=== PATIENT | female | born 1995 | race Caucasian/White ===

== ENCOUNTER 2016-02-23 22:48 | Emergency (ER) | payer OTHER ==
[2016-02-24] MEDS ORDERED: AZITHROMYCIN 250 MG TAB As Ordered ONE (02:28)
--- NOTE | 2016-02-24 02:57 | EDDOCDS ---
Nurse's Notes [facility] Name: Jennifer Clarke Age: 20 yrs Sex: Female : 1995 Arrival Date: 02/23/2016 Time: 22:48 Bed I7 / 29 Private MD: AMBROCIO Esquivel Diagnosis: Acute sinusitis;Cough Presentation: 02/22 22:59 Presenting complaint: Patient states: painful cough, sore throat, nasal congestion pml since this AM. states she is 25 weeks . Adult Sepsis Screening: The patient does not have new or worsening altered mentation. Patient's respiratory rate is less than 22. Systolic blood pressure is greater than 100. Patient has a qSOFA score of 0- Negative Sepsis Screen. Suicide/Homicide risk assessment- the patient denies having any suicidal and/or homicidal ideations and does not present with any other emotional, behavioral or mental health complaints. Status: The patient is a dependent. Transition of care: patient was not received from another setting of care. 22:59 Acuity: ATILIO Level 5 pml 22:59 Method Of Arrival: Walkin/Carried/Asstd pml Triage Assessment: 23:00 General: Appears in no apparent distress, Behavior is appropriate for age, cooperative. pml Pain: Location: chest Pain currently is 4 out of 10 on a pain scale. HIV screening NA for this visit Offered previously. Respiratory: Onset: The symptoms/episode began/occurred this morning. 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 Vitamin Oral tab 1 tab once daily - PMHx: none; - PSHx: Appendectomy; - Social history: Smoking status: Patient states was never smoker of tobacco. No barriers to communication noted, The patient speaks fluent Occitan, Speaks appropriately for age. - Family history: Not pertinent. - : The pt / caregiver states he / she is not on anticoagulants. Home medication list is obtained from the patient. - Exposure Risk Screening:: None identified. Screenin/17 01:26 Screening information is obtained from the patient. Fall risk: No risks identified. jmb Assistance ADL's: requires no assistance with activities of daily living. Abuse/DV Screen: The patient / caregiver reports he/she is: not in a situation that causes fear, pain or injury. Nutritional screening: No deficits noted. home support is adequate. 02:54 Advance Directives: Currently, there is no health care proxy. rw1 Assessment: 01:26 General: Appears in no apparent distress, Behavior is appropriate for age, cooperative. jmb Neurological: Level of Consciousness is awake, alert, obeys commands, Oriented to person, place, time, Speech is normal, Facial symmetry appears normal, Facial symmetry: tongue is midline. Cardiovascular: Capillary refill < 3 seconds Heart tones present Pulses are all present. Rhythm is regular. Respiratory: Airway is patent Respiratory effort is even, Respiratory pattern is regular, Breath sounds are diminished bilaterally. GI: Abdomen is non- distended Bowel sounds present X 4 quads. Abd is soft X 4 quads. Derm: Skin is pink, warm & dry. Musculoskeletal: Range of motion intact in all extremities. 02:54 Reassessment: Patient appears in no apparent distress at this time. Patient states rw1 feeling better. Vital Signs: 02/22 22:50 BP 109 / 61; Pulse 118; Resp 18 S; Temp 98.5(O); Pulse Ox 96% on R/A; Weight 62.14 kg gr2 (R); Height 5 ft. 3 in. (160.02 cm) (R); Pain 4/10; 02/23 02:15 BP 111 / 59; Pulse 101; Resp 20; Temp 99.6(TE); Pulse Ox 97% on R/A; Pain 4/10; kb5 02:54 BP 104 / 61; Pulse 99; Resp 18; Temp 97.5(O); Pulse Ox 97% on R/A; rw1 02/22 22:50 Body Mass Index 24.27 (62.14 kg, 160.02 cm) gr2 Vitals: 02/22 22:50 Log In Time: February 23, 2016 at 22:50. gr2 02/23 01:46 Strep Screen is obtained and tested: Negative, a GATSNEG culture is ordered in [facility] and sent. 02:22 Heart Tones: 158BPM. cp1 ED Course: 02/22 22:49 Patient visited by Dariusz Hatch. gr2 22:49 Patient moved to Waiting gr2 22:50 [place] [facility] [place] Phys[place]. gr2 22:52 Patient visited by Dariusz Hatch. gr2 22:52 Patient moved to Pre E gr2 22:59 Triage Initiated pml 23:01 Patient visited by Hortensia Guerra RN. pml 23:56 Patient visited by Elke Foley LPN. cp1 02/23 01:21 Patient moved to I jmb 01:26 Patient visited by Pavel Mcfarlane PCA. kb5 01:26 The patient / caregiver is instructed regarding the plan of care and ED course. jmb 01:27 Patient visited by Kushal Tenorio RN. jmb 01:35 -Influenza A&B Rapid Antigen - Nose Sent. jmb 01:46 GATS (NEGATIVE STREP SCREEN) Sent. jmb 02:05 Patient visited by Pavel Mcfarlane PCA. kb5 02:09 [facility] ck7 02:09 Juan Hui DO is Attending Physician. ck7 02:09 Patient visited by Sherif Dailey RPA-C. ck7 02:15 Patient visited by Pavel Mcfarlane PCA. kb5 02:22 Patient visited by Elke Foley LPN. cp1 02:46 Alvin [facility] [place] Referral Physician. ck7 02:46 FÁTIMA Coronel is Referral Physician. ck7 02:54 No IV's were initiated during this patient's visit. No procedures done that require rw1 assistance. Administered Medications: 02:30 Drug: azithromycin 500 mg [azithromycin 250 mg tablet (2 tabs)] Route: PO; eloisa Order Results: Lab Order: -Influenza A&B Rapid Antigen - Nose; SPEC'M 02/24/16 01:34 Test: INFLUENZA A RAPID SCR by ICA; Value: INFLUENZA A RESULTS NEGATIVE; Status: F Test: INFLUENZA A RAPID SCR by ICA; Value: Comments:; Status: F Test: INFLUENZA B RAPID SCR by ICA; Value: INFLUENZA B RESULTS NEGATIVE; Status: F Test Note: ; The Influenza test is a direct rapid immunoassay for the qualitative detection of Influenza viral antigen. Cell culture (Viral Culture) testing should be considered to confirm NEGATIVE results and to assist in detecting other viruses that can provide similar clinical symptoms. Please contact the lab within 24 hours ([phone]) if confirmatory testing is desired. Outcome: 02:46 Discharge ordered by Provider. ck7 02:54 Discharge Assessment: Patient awake, alert and oriented x 3. No cognitive and/or rw1 functional deficits noted. Patient verbalized understanding of disposition instructions. patient administered narcotics - no. The following High Risk Discharge criteria are identified: None. Discharged to home ambulatory, with significant other. Condition: stable. Discharge instructions given to patient, Instructed on discharge instructions, follow up and referral plans. medication usage, Demonstrated understanding of instructions, medications, Pt was receptive of discharge instructions/ teaching. Prescriptions given X 1. No special radiology studies were completed. Property sent home with patient. 02:56 Patient left the ED. rw1 Signatures: Marco Nuñez LPN MARKETING INSTRUCTOR rw1 Pavel Mcfarlane, JAQUI CELL BIOLOGIST kb5 Elke Foley LPN LPN cp1 Hortensia Guerra,CRISTAL RN pml Sherif Dailey, RPA-C RPA-Cck7 Dariusz Hatch gr2 Kushal Tenorio,RN RN jmb Corrections: (The following items were deleted from the chart) 02/22 23:00 22:59 Presenting complaint: Patient states: painful cough, sore throat, nasal pml congestion since this AM. pml 23:00 23:00 PSHx: none; pml pml MTDD
--- NOTE | 2016-02-24 02:57 | EDDOCDS ---
Physician Documentation [facility] Name: Jennifer Clarke Age: 20 yrs Sex: Female : 1995 Arrival Date: 02/23/2016 Time: 22:48 Bed I7 / 29 Private MD: Alvin [facility] [place] Disposition: 02/24/16 02:46 Discharged to Home/Self Care. Impression: Acute sinusitis, Cough. - Condition is Stable. - Discharge Instructions: Sinusitis, Adult, Cough, Adult. - Prescriptions for Zithromax 250 mg Oral Tablet - take 1 tablet by ORAL route once daily start tomorrow; 4 tablet. - Medication Reconciliation, Work Release Form - 1 day, Local Pharmacy Hours form. - Follow up: [facility] [place] Alvin; When: 2 - 3 days; Reason: Recheck today's complaints, Continuance of care. Follow up: FÁTIMA Coronel; When: 1 - 2 days; Reason: Recheck today's complaints, Continuance of care. - Problem is new. - Symptoms have improved. - Notes: USE MEDICATION INSTRUTCED, FOLLOW UP WITH ANJALI GONZALEZ OB, RETURN TO THE ER IF THE SYMPTOMS WORSEN OR BECOME CONCERNING Historical: - Allergies: no known allergies; - Home Meds: 1. Vitamin Oral tab 1 tab once daily - PMHx: none; - PSHx: Appendectomy; - Social history: Smoking status: Patient states was never smoker of tobacco. No barriers to communication noted, The patient speaks fluent Eritrean, Speaks appropriately for age. - Family history: Not pertinent. - : The pt / caregiver states he / she is not on anticoagulants. Home medication list is obtained from the patient. - Exposure Risk Screening:: None identified. 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 3 in. (160.02 cm) (R); Pain 05/17; 02/23 02:15 BP 111 / 59; Pulse 101; Resp 20; Temp 99.6(TE); Pulse Ox 97% on R/A; Pain 4/10; kb5 02:54 BP 104 / 61; Pulse 99; Resp 18; Temp 97.5(O); Pulse Ox 97% on R/A; rw1 02/22 22:50 Body Mass Index 24.27 (62.14 kg, 160.02 cm) gr2 MDM: 01:29 Strep Screen, Nursing ordered. jmb 01:29 Obtain sample by nasopharyngeal swab ordered. jmb 01:30 -Influenza A&B Rapid Antigen - Nose Ordered. EDMS 01:46 GATS (NEGATIVE STREP SCREEN) Ordered. EDMS 02:10 Recheck Vital Signs, perform reassessment and enter into [employer] ordered. ck7 02:10 -Influenza A&B Rapid Antigen - Nose Reviewed. ck7 02:12 Financial registration complete. hs2 02:19 Heart Tones ordered. ck7 02:25 azithromycin 500 mg PO once ordered. ck7 Administered Medications: 02:30 Drug: azithromycin 500 mg [azithromycin 250 mg tablet (2 tabs)] Route: PO; linette Signatures: Dispatcher [employer] EDKY Marco Nuñez,YEAST CULTURE OPERATOR YEAST CULTURE OPERATOR rw1 Hortensia Guerra,RN RN Sherif Guzmán, RPA-C RPA-Cck7 Kushal TenorioRN RN Delicia Dodson, Reg Reg hs2 The chart was reviewed and I authenticate all verbal orders and agree with the evaluation and treatment provided.Corrections: (The following items were deleted from the chart) 02/22 23:00 23:00 PSHx: none; pml pml MTDD
--- NOTE | 2016-02-26 03:58 | EDDOCDS ---
Nurse's Notes [facility] Name: Jennifer Clarke Age: 20 yrs Sex: Female : 1995 Arrival Date: 02/23/2016 Time: 22:48 Bed I7 / 29 Private MD: AMBROCIO Esquivel Diagnosis: Acute sinusitis;Cough Presentation: 02/22 22:59 Presenting complaint: Patient states: painful cough, sore throat, nasal congestion pml since this AM. states she is 25 weeks . Adult Sepsis Screening: The patient does not have new or worsening altered mentation. Patient's respiratory rate is less than 22. Systolic blood pressure is greater than 100. Patient has a qSOFA score of 0- Negative Sepsis Screen. Suicide/Homicide risk assessment- the patient denies having any suicidal and/or homicidal ideations and does not present with any other emotional, behavioral or mental health complaints. Status: The patient is a dependent. Transition of care: patient was not received from another setting of care. 22:59 Acuity: ATILIO Level 5 pml 22:59 Method Of Arrival: Walkin/Carried/Asstd pml Triage Assessment: 23:00 General: Appears in no apparent distress, Behavior is appropriate for age, cooperative. pml Pain: Location: chest Pain currently is 4 out of 10 on a pain scale. HIV screening NA for this visit Offered previously. Respiratory: Onset: The symptoms/episode began/occurred this morning. 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 Vitamin Oral tab 1 tab once daily - PMHx: none; - PSHx: Appendectomy; - Social history: Smoking status: Patient states was never smoker of tobacco. No barriers to communication noted, The patient speaks fluent Latvian, Speaks appropriately for age. - Family history: Not pertinent. - : The pt / caregiver states he / she is not on anticoagulants. Home medication list is obtained from the patient. - Exposure Risk Screening:: None identified. Screenin/17 01:26 Screening information is obtained from the patient. Fall risk: No risks identified. jmb Assistance ADL's: requires no assistance with activities of daily living. Abuse/DV Screen: The patient / caregiver reports he/she is: not in a situation that causes fear, pain or injury. Nutritional screening: No deficits noted. home support is adequate. 02:54 Advance Directives: Currently, there is no health care proxy. rw1 Assessment: 01:26 General: Appears in no apparent distress, Behavior is appropriate for age, cooperative. jmb Neurological: Level of Consciousness is awake, alert, obeys commands, Oriented to person, place, time, Speech is normal, Facial symmetry appears normal, Facial symmetry: tongue is midline. Cardiovascular: Capillary refill < 3 seconds Heart tones present Pulses are all present. Rhythm is regular. Respiratory: Airway is patent Respiratory effort is even, Respiratory pattern is regular, Breath sounds are diminished bilaterally. GI: Abdomen is non- distended Bowel sounds present X 4 quads. Abd is soft X 4 quads. Derm: Skin is pink, warm & dry. Musculoskeletal: Range of motion intact in all extremities. 02:54 Reassessment: Patient appears in no apparent distress at this time. Patient states rw1 feeling better. Vital Signs: 02/22 22:50 BP 109 / 61; Pulse 118; Resp 18 S; Temp 98.5(O); Pulse Ox 96% on R/A; Weight 62.14 kg gr2 (R); Height 5 ft. 3 in. (160.02 cm) (R); Pain 4/10; 02/23 02:15 BP 111 / 59; Pulse 101; Resp 20; Temp 99.6(TE); Pulse Ox 97% on R/A; Pain 4/10; kb5 02:54 BP 104 / 61; Pulse 99; Resp 18; Temp 97.5(O); Pulse Ox 97% on R/A; rw1 02/22 22:50 Body Mass Index 24.27 (62.14 kg, 160.02 cm) gr2 Vitals: 02/22 22:50 Log In Time: February 23, 2016 at 22:50. gr2 02/23 01:46 Strep Screen is obtained and tested: Negative, a GATSNEG culture is ordered in [facility] and sent. 02:22 Heart Tones: 158BPM. cp1 ED Course: 02/22 22:49 Patient visited by Dariusz Hatch. gr2 22:49 Patient moved to Waiting gr2 22:50 Alvin [facility] [place] is Private Physician. gr2 22:52 Patient visited by Dariusz Hatch. gr2 22:52 Patient moved to Pre E gr2 22:59 Triage Initiated pml 23:01 Patient visited by Hortensia Guerra,CRISTAL. pml 23:56 Patient visited by Elke Foley LPN. cp1 02/23 01:21 Patient moved to I jmb 01:26 Patient visited by Pavel Mcfarlane PCA. kb5 01:26 The patient / caregiver is instructed regarding the plan of care and ED course. jmb 01:27 Patient visited by Kushal Tenorio RN. jmb 01:35 -Influenza A&B Rapid Antigen - Nose Sent. jmb 01:46 GATS (NEGATIVE STREP SCREEN) Sent. jmb 02:05 Patient visited by Pavel Mcfarlane PCA. kb5 02:09 Sherif Dailey RPA-C is PHCP. ck7 02:09 Juan Hui DO is Attending Physician. ck7 02:09 Patient visited by Sherif Dailey RPA-C. ck7 02:15 Patient visited by Pavel Mcfarlane PCA. kb5 02:22 Patient visited by Elke Foley LPN. cp1 02:46 Alvin [facility] [place] is Referral Physician. ck7 02:46 FÁTIMA Coronel is Referral Physician. ck7 02:54 No IV's were initiated during this patient's visit. No procedures done that require rw1 assistance. 03:36 [facility] Payment Agreement was scanned into [employer] and attached to record. hs2 09:11 T-Sheet-- Draft Copy was scanned into [employer] and attached to record. gb Administered Medications: 02:30 Drug: azithromycin 500 mg [azithromycin 250 mg tablet (2 tabs)] Route: PO; linette Order Results: Lab Order: -Influenza A&B Rapid Antigen - Nose; SPEC'M 02/24/16 01:34 Test: INFLUENZA A RAPID SCR by ICA; Value: INFLUENZA A RESULTS NEGATIVE; Status: F Test: INFLUENZA A RAPID SCR by ICA; Value: Comments:; Status: F Test: INFLUENZA B RAPID SCR by ICA; Value: INFLUENZA B RESULTS NEGATIVE; Status: F Test Note: ; The Influenza test is a direct rapid immunoassay for the qualitative detection of Influenza viral antigen. Cell culture (Viral Culture) testing should be considered to confirm NEGATIVE results and to assist in detecting other viruses that can provide similar clinical symptoms. Please contact the lab within 24 hours ([phone]) if confirmatory testing is desired. Lab Order: GATS (NEGATIVE STREP SCREEN); SPEC'M 02/24/16 01:33 Test: GATS CULTURE (NEG STREP SCR); Value: GATS RESULT NEGATIVE FOR STREP PYOGENES (GROUP A); Status: F Outcome: 02:46 Discharge ordered by Provider. ck7 02:54 Discharge Assessment: Patient awake, alert and oriented x 3. No cognitive and/or rw1 functional deficits noted. Patient verbalized understanding of disposition instructions. patient administered narcotics - no. The following High Risk Discharge criteria are identified: None. Discharged to home ambulatory, with significant other. Condition: stable. Discharge instructions given to patient, Instructed on discharge instructions, follow up and referral plans. medication usage, Demonstrated understanding of instructions, medications, Pt was receptive of discharge instructions/ teaching. Prescriptions given X 1. No special radiology studies were completed. Property sent home with patient. 02:56 Patient left the ED. rw1 Signatures: Omaira Hernandez, Reg Reg gb Marco Nuñez,SUPERVISOR MIRROR FABRICATION SUPERVISOR MIRROR FABRICATION rw1 Pavel Mcfarlane, SILK SCREENER SILK SCREENER kb5 Elke Foley,SUPERVISOR MIRROR FABRICATION SUPERVISOR MIRROR FABRICATION cp1 Hortensia Guerra RN RN pml Kwaczala, Christopher, RPA-C RPA-Cck7 Dariusz Hatch gr2 Kushal Tenorio RN RN jmb Stanton, Hillary, Reg Reg hs2 Corrections: (The following items were deleted from the chart) 02/22 23:00 22:59 Presenting complaint: Patient states: painful cough, sore throat, nasal pml congestion since this AM. pml 23:00 23:00 PSHx: none; pml pml Chart Complete MTDD
--- NOTE | 2016-02-26 03:58 | EDDOCDS ---
Physician Documentation [facility] Name: Jennifer Clarke Age: 20 yrs Sex: Female : 1995 Arrival Date: 02/23/2016 Time: 22:48 Bed I7 / 29 Private MD: Alvin [facility] Disposition: 02/24/16 02:46 Discharged to Home/Self Care. Impression: Acute sinusitis, Cough. - Condition is Stable. - Discharge Instructions: Sinusitis, Adult, Cough, Adult. - Prescriptions for Zithromax 250 mg Oral Tablet - take 1 tablet by ORAL route once daily start tomorrow; 4 tablet. - Medication Reconciliation, Work Release Form - 1 day, Local Pharmacy Hours form. - Follow up: [facility] Alvin; When: 2 - 3 days; Reason: Recheck today's complaints, Continuance of care. Follow up: FÁTIMA Coronel; When: 1 - 2 days; Reason: Recheck today's complaints, Continuance of care. - Problem is new. - Symptoms have improved. - Notes: USE MEDICATION INSTRUTCED, FOLLOW UP WITH ANJALI GONZALEZ OB, RETURN TO THE ER IF THE SYMPTOMS WORSEN OR BECOME CONCERNING Historical: - Allergies: no known allergies; - Home Meds: 1. Vitamin Oral tab 1 tab once daily - PMHx: none; - PSHx: Appendectomy; - Social history: Smoking status: Patient states was never smoker of tobacco. No barriers to communication noted, The patient speaks fluent Japanese, Speaks appropriately for age. - Family history: Not pertinent. - : The pt / caregiver states he / she is not on anticoagulants. Home medication list is obtained from the patient. - Exposure Risk Screening:: None identified. 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 3 in. (160.02 cm) (R); Pain 05/17; 02/23 02:15 BP 111 / 59; Pulse 101; Resp 20; Temp 99.6(TE); Pulse Ox 97% on R/A; Pain 4/10; kb5 02:54 BP 104 / 61; Pulse 99; Resp 18; Temp 97.5(O); Pulse Ox 97% on R/A; rw1 02/22 22:50 Body Mass Index 24.27 (62.14 kg, 160.02 cm) gr2 MDM: 01:29 Strep Screen, Nursing ordered. jmb 01:29 Obtain sample by nasopharyngeal swab ordered. jmb 01:30 -Influenza A&B Rapid Antigen - Nose Ordered. EDMS 01:46 GATS (NEGATIVE STREP SCREEN) Ordered. EDMS 02:10 Recheck Vital Signs, perform reassessment and enter into [employer] ordered. ck7 02:10 -Influenza A&B Rapid Antigen - Nose Reviewed. ck7 02:12 Financial registration complete. hs2 02:19 Heart Tones ordered. ck7 02:25 azithromycin 500 mg PO once ordered. ck7 03:36 [facility] Payment Agreement was scanned into [employer] and attached to record. hs2 09:11 T-Sheet-- Draft Copy was scanned into [employer] and attached to record. gb Administered Medications: 02:30 Drug: azithromycin 500 mg [azithromycin 250 mg tablet (2 tabs)] Route: PO; linette Signatures: Dispatcher [employer] EDDE Omaira Hernandez, Reg Reg gb Marco Nuñez,APPLICATIONS ANALYST APPLICATIONS ANALYST rw1 Hortensia Guerra,RN Sherif Faustin, RPA-C RPA-Cck7 Kushal Tenorio RN RN jmb Stanton, Hillary, Reg Reg hs2 The chart was reviewed and I authenticate all verbal orders and agree with the evaluation and treatment provided.Corrections: (The following items were deleted from the chart) 02/22 23:00 23:00 PSHx: none; pml pml Attachments: 02/23 03:36 [facility] Payment Agreement hs2 09:11 T-Sheet-- Draft Copy gb Chart Complete MTDD
--- NOTE | 2016-02-26 03:58 | EDDOCDS ---
Physician Documentation [facility] Name: Jennifer Clarke Age: 20 yrs Sex: Female : 1995 Arrival Date: 02/23/2016 Time: 22:48 Bed I7 / 29 Private MD: Alvin [facility] [place] Disposition: 02/24/16 02:46 Discharged to Home/Self Care. Impression: Acute sinusitis, Cough. - Condition is Stable. - Discharge Instructions: Sinusitis, Adult, Cough, Adult. - Prescriptions for Zithromax 250 mg Oral Tablet - take 1 tablet by ORAL route once daily start tomorrow; 4 tablet. - Medication Reconciliation, Work Release Form - 1 day, Local Pharmacy Hours form. - Follow up: [facility] [place] Alvin; When: 2 - 3 days; Reason: Recheck today's complaints, Continuance of care. Follow up: FÁTIMA Coronel; When: 1 - 2 days; Reason: Recheck today's complaints, Continuance of care. - Problem is new. - Symptoms have improved. - Notes: USE MEDICATION INSTRUTCED, FOLLOW UP WITH ANJALI GONZALEZ OB, RETURN TO THE ER IF THE SYMPTOMS WORSEN OR BECOME CONCERNING Historical: - Allergies: no known allergies; - Home Meds: 1. Vitamin Oral tab 1 tab once daily - PMHx: none; - PSHx: Appendectomy; - Social history: Smoking status: Patient states was never smoker of tobacco. No barriers to communication noted, The patient speaks fluent Palauan, Speaks appropriately for age. - Family history: Not pertinent. - : The pt / caregiver states he / she is not on anticoagulants. Home medication list is obtained from the patient. - Exposure Risk Screening:: None identified. PHYSICIAN/INTERNIST: 02/22 23:00 LMP 08/27/2015, Verified, EDC 06/02/2016, Gestational age from LMP: 25 weeks 6 pml days Vital Signs: 22:50 BP 109 / 61; Pulse 118; Resp 18 S; Temp 98.5(O); Pulse Ox 96% on R/A; Weight 62.14 kg / gr2 137 lbs (R); Height 5 ft. 3 in. (160.02 cm) (R); Pain 05/17; 02/23 02:15 BP 111 / 59; Pulse 101; Resp 20; Temp 99.6(TE); Pulse Ox 97% on R/A; Pain 4/10; kb5 02:54 BP 104 / 61; Pulse 99; Resp 18; Temp 97.5(O); Pulse Ox 97% on R/A; rw1 02/22 22:50 Body Mass Index 24.27 (62.14 kg, 160.02 cm) gr2 MDM: 01:29 Strep Screen, Nursing ordered. jmb 01:29 Obtain sample by nasopharyngeal swab ordered. jmb 01:30 -Influenza A&B Rapid Antigen - Nose Ordered. EDMS 01:46 GATS (NEGATIVE STREP SCREEN) Ordered. EDMS 02:10 Recheck Vital Signs, perform reassessment and enter into [employer] ordered. ck7 02:10 -Influenza A&B Rapid Antigen - Nose Reviewed. ck7 02:12 Financial registration complete. hs2 02:19 Heart Tones ordered. ck7 02:25 azithromycin 500 mg PO once ordered. ck7 03:36 [facility] Payment Agreement was scanned into [employer] and attached to record. hs2 09:11 T-Sheet-- Draft Copy was scanned into [employer] and attached to record. gb Administered Medications: 02:30 Drug: azithromycin 500 mg [azithromycin 250 mg tablet (2 tabs)] Route: PO; linette Signatures: Dispatcher [employer] EDIA Omaira Hernandez, Reg Reg gb Marco Nuñez,HEALTH AND FITNESS PROFESSOR HEALTH AND FITNESS PROFESSOR rw1 Hortensia Guerra,RN Sherif Faustin, RPA-C RPA-Cck7 Kushal Tenorio RN RN jmb Stanton, Hillary, Reg Reg hs2 The chart was reviewed and I authenticate all verbal orders and agree with the evaluation and treatment provided.Corrections: (The following items were deleted from the chart) 02/22 23:00 23:00 PSHx: none; pml pml Attachments: 02/23 03:36 [facility] Payment Agreement hs2 09:11 T-Sheet-- Draft Copy gb Chart Complete MTDD
== END 2016-02-24 02:56 | disposition home or self-care (01) ==
LOC: M ED 22:48
DX: J01.90 Acute sinusitis, unspecified (principal); R05 Cough; Z90.89 Acquired absence of other organs; Z79.899 Other long term (current) drug therapy

== ENCOUNTER 2016-03-22 15:54 | Outpatient (CLI) | payer OTHER ==
[~2016-03-22] VITALS: Ht 160 cm; Wt 60.0 kg
[2016-03-22] MEDS ORDERED: PRENTAB9 PO (16:00)
[2016-03-22 16:08] VITALS: BP 107/61
== END 2016-03-22 17:35 | disposition home or self-care (01) ==
LOC: M LDO 15:54
PROVIDERS: ATTEND Obstetrics & Gynecology
DX: O26.892 Other specified pregnancy related conditions, second trimester (principal); Z3A.29 29 weeks gestation of pregnancy

== ENCOUNTER 2016-06-01 00:32 | Emergency (ER) | payer OTHER ==
[~2016-06-01] VITALS: Ht 160 cm; Wt 65.3 kg
[~2016-06-01 00:32] MED LIST: PRENTAB9 PO
[2016-06-01 00:37] VITALS: BP 121/66
== END 2016-06-01 01:17 | disposition admitted as inpatient to this hospital (09) ==
LOC: M ED 00:58
DX: O9A.213 Injury, poisoning and certain other consequences of external causes complicating pregnancy, third trimester (principal); S69.91XA Unspecified injury of right wrist, hand and finger(s), initial encounter; W01.0XXA Fall on same level from slipping, tripping and stumbling without subsequent striking against object, initial encounter; Y92.019 Unspecified place in single-family (private) house as the place of occurrence of the external cause; Y93.01 Activity, walking, marching and hiking; Y99.8 Other external cause status; Z3A.39 39 weeks gestation of pregnancy

== ENCOUNTER 2016-06-01 01:23 | Outpatient (CLI) | payer OTHER ==
[~2016-06-01] VITALS: Ht 160 cm; Wt 65.0 kg
[2016-06-01 01:33] VITALS: BP 109/65
[2016-06-01 02:58] LABS: MEAN CORPUSCULAR HEMOGLOBIN 31.4 pg (27.0-33.0); MEAN CORPUSCULAR HGB CONC 34.2 g/dl (32.0-36.5); MEAN CORPUSCULAR VOLUME 91.8 fl (80.0-96.0); RED CELL DISTRIBUTION WIDTH 13.2 % (11.5-14.5); WHITE BLOOD COUNT 8.4 K/mm3 (4.0-10.0)
--- NOTE | 2016-06-01 05:28 | HPE ---
DATE OF ADMISSION: 06/01/2016 HISTORY: This lady is a 20-year-old 1, para 0, last menstrual period (LMP) 08/27/2015,, estimated date of confinement (EDC) 06/02/2016 at 39+1 weeks gestation was walking her dog tonight and she fell, skinned her knee and the hip to right side of her abdomen. Risk factors is that she has asthma and takes medication on an as needed basis. Labs show A+, HIV negative, hepatitis negative, RPR negative, rubella immune. Varicella nonimmune Pap, less than 21 years of age. Urine negative. Gonorrhea and chlamydia are negative. 1-hour glucose 99. GBS was negative. EXAMINATION: On examination she has no acute distress. Symphysis fundus height is 39, vertex occiput anterior (OA), category I strip. No vaginal bleeding or no vaginal loss. Her right knee shows an abrasion from falling on it and the her right side of her abdomen appears to be normal. She has a category I strip. No contractions are noted. No decelerations. VITAL SIGNS: Blood pressure 109/65, respirations 18, pulse 78 and temperature is 98.9. Urine is 1.025, pH is 6 and negative. SUMMARY: In summary we have a 39+ weeks of gestation who fell with some blunt trauma to her right knee. She has had tetanus, diphtheria, pertussis (Tdap) and in it is her tetanus. No contractions. We have given her precautions. She has an appointment with the clinic tomorrow. She was discharged undelivered with a dull ache pain 03/19 and abrasion of her right knee.
== END 2016-06-01 02:50 | disposition home or self-care (01) ==
LOC: M LDO 01:23
PROVIDERS: ATTEND Obstetrics & Gynecology
DX: S80.211A Abrasion, right knee, initial encounter (principal); W18.30XA Fall on same level, unspecified, initial encounter; Y92.9 Unspecified place or not applicable; Y93.K1 Activity, walking an animal; Y99.9 Unspecified external cause status; R52 Pain, unspecified; Z3A.39 39 weeks gestation of pregnancy

== ENCOUNTER 2016-06-08 09:47 | Inpatient (IN) | payer OTHER ==
[2016-06-08] VITALS (30 sets, daily range): BP systolic 87–134; BP diastolic 51–74
[~2016-06-08] VITALS: Ht 160 cm; Wt 63.0 kg
[~2016-06-08 09:47] MED LIST changes: -IBUP-1114 PO; -RANI15TA PO
[2016-06-08] MEDS ORDERED: RANI15TA PO (10:13)
--- NOTE | 2016-06-08 10:16 | IPNPDOC ---
Text Note Date of Service The patient was seen on 06/08/16. NOTE [id number] @1012 20 yo G1 presents to L&D triage with c/o CTXs @ 40+6 by LMP([id number]) and 8+2 wk US on [id number]. She was seen during the night and discharged around 0100 with SVE-2/80/-2. S: c/o increasing frequency of CTXs. Q 3-4 min. Resting on her left side in triage bed. Spouse at bedside. O: VS WNL, afebrile FHR- FHR tracing started 3 min ago SVE- 3/100/-2 A: 20 yo G1 @ 40+6 by LMP and 8 wk US with minimal cervical change since 99. P: Continue to monitor and assess. Once reactive, reassuring NST allow to walk for 2 hours and then reassess/ VS,Fishbone, I+O VS, Fishbone, I+O Vital Signs Date Time Temp Pulse Resp B/P (MAP) Pulse Ox O2 Delivery O2 Flow Rate FiO2 06/08/16 10:01 98.6 102 20 122/67 (85) DEVEN OCONNELL CNM June 08, 2016 10:16
--- NOTE | 2016-06-08 13:04 | IPNPDOC ---
Text Note Date of Service The patient was seen on 06/08/16. NOTE [id number] @1245 20 yo G1 presents to L&D triage with c/o CTXs @ 40+6 by LMP([id number]) and 8+2 wk US on [id number]. She was seen during the night and discharged around 0100 with SVE-2/80/-2. S: c/o increasing frequency of CTXs. Q 3-4 min. Resting on her left side in triage bed. Spouse at bedside. O: VS WNL, afebrile FHR- 150, moderate variability, + accels, intermittent late and early decelerations. CTX- Q 3-5, palpated as moderate, resting tone is palpated as soft SVE- 3/100/-2(no change from previous exam), mid/vtx/soft A: 20 yo G1 @ 40+6 by LMP and 8 wk US with no cervical change since 1030. P: Continue to monitor and assess, admit to L&D VS,Bille, I+O VS, Bille, I+O Vital Signs Date Time Temp Pulse Resp B/P (MAP) Pulse Ox O2 Delivery O2 Flow Rate FiO2 06/08/16 12:27 94 20 99/57 (71) 06/08/16 10:01 98.6 DEVEN OCONNELL CNM June 08, 2016 13:04
[2016-06-08] MEDS ORDERED: LACTATED RINGER'S 1000 ML IV STA (13:24)
--- NOTE | 2016-06-08 13:24 | HPEPDOC ---
Obstetrical History & Physical General Date of Admission June 08, 2016 at 12:50 History of Present Illness 20 yo G1 @ 40+6 by LMP([id number]) and 8+2 wk US on [id number], with an KIAN- [id number]. Presented with CTXs and a small amount of spotting. Denies DFM, LOF and BRVB. GBS-negative. Chief Complaint: Other (NRFHT) Information Provided By: Patient Age: 20 : 1 Term: 0 Pre-term: 0 Abortions: 0 Livin Care Care: Good Care Number of Visits: 10 Dating Final EDC: Jun 02, 2016 Final EDC for Daily Update: Jun 02, 2016 Final EDC by: LMP LMP: Aug 27, 2015 1st Trimester Date: Oct 24, 2015 Weeks + Days: 8.2 Estimated Date of Confinement: Jun 02, 2016 EGA at Admission: 40.6 Antepartum Course Diagnos(e)s 1. Asthma- albuterol inhaler prn 2. Rt wrist pain- sent to PT for wrist spling Height (inches): 62 Pre- weight (lbs.): 120 Admission Weight (lbs.): 148 Change in Weight (lbs.): 28 Past Medical History Past Obstetrical History : Past Obstetrical History: Primgrav[employer] History: No pertinent history Past Medical History Medical History Asthma Surgical History: Appendectomy (2008), [place] teeth (2012) Family History Significant Family History: No pertinent family hx Social History Marital Status: Family situation: Spouse/partner home Psychosocial History: No pertinent psych hx * Smoker: non-smoker Alcohol: Denies Drugs: denies Abuse Violence Screening Have you been hit/kicked/slapp: No Have you been sexually assault: No Imunizations Tdap status: current ([id number]) Influenza Status: current ([id number]) Allergies Coded Allergies: No Known Allergies (Unverified , 06/01/16) Medications Scheduled Multivitamins/ ( 27-0.8 mg) 1 Tab Tab, 1 TAB PO DAILY for VITAMIN Scheduled PRN Ranitidine Hcl (Zantac) 150 Mg Tab, 1 TAB PO BID PRN for HEARTBURN Physical Examination Physical Examination GENERAL: A&O x 3 BREAST: . ABDOMEN: Gravid and non-tender to touch. FETUS: VTX by Jann and LACY HEART RATE: RRR, no m/r/g LUNGS: CTA EXTREMITIES: No edema. No clonus. DTRs +1 EFW- 3400 grams Vital Signs/I&O Vital Signs Date Time Temp Pulse Resp B/P (MAP) Pulse Ox O2 Delivery O2 Flow Rate FiO2 06/08/16 12:27 94 20 99/57 (71) 06/08/16 10:01 98.6 Laboratory Data 24H LABS Laboratory Tests 2 06/08/16 12:59: Serology Scanned Report Hepatitis B Testing CBC/BMP [id number] 6.9/13.4/39.1/301 [id number]/12.0/35.1/257 Pertinent Laboratoy Data Blood Type: O+ RBC Antibody Screen: Negative HIV: Negative Hepatitis B: Negative Hepatitis C: Unknown Rapid Plasma Reagin: Nonreactive Rubella: Immune Varicella: Nonreactive Chlamydia/Gonorrhea: Negative Group B Streptococcus: Negative Quad Screen Test: Declined Cystic Fibrosis: Negative Glucose Tolerance Test: 99 Anatomy Ultrasound Ultrasound Date: Jan 13, 2016 Placenta Location: Posterior Normal Anatomy: Yes Placenta Previa: No Estimated Weight (grams): 326 Steroid Therapy Steroid Therapy: No Vaginal Examination Dilation: 3 cm Effacement: 80+% Station: -2 Cervical Consistency: Soft Cervical Position: Middle Presentation: Cephalic presentation Position: Vertex (occiput) Assessment Heart Rate (FHR): 150 Variability: Moderate Accelerations: Positive Decelerations: Early, Late Tocometer Contractions: Yes Frequency: regular, every 2-5 min. Duration: less than 90 seconds Strength: palpated as moderate Multi-drug resistant Organism: No history of MDRO Assessment/Plan Assessment 20 yo G1 @ 40+6 by LMP([id number]) and 8+2 wk US on [id number], with an KIAN- [id number]. Presented with CTXs and a small amount of spotting. Denies DFM, LOF and BRVB. GBS-negative. Admitted to L&D for NRFHT. Plan Admit and orient. Psychiatric Specialist and consent. Diet: clear liquid GBS negative Labs and IV per unit protocol. Counseled on Pitocin IOL. LR 1000 ml bolus, then LR @ 125 ml/hr Anticipate C-S as appropriate. DEVEN OCONNELL CNM June 08, 2016 13:24
[2016-06-08 14:40] LABS: MEAN CORPUSCULAR HEMOGLOBIN 30.6 pg (27.0-33.0); MEAN CORPUSCULAR HGB CONC 34.1 g/dl (32.0-36.5); MEAN CORPUSCULAR VOLUME 89.7 fl (80.0-96.0); RED CELL DISTRIBUTION WIDTH 13.3 % (11.5-14.5); WHITE BLOOD COUNT 19.2 K/mm3 (4.0-10.0)
[2016-06-08] MEDS: LR 1,000 ML IV SCH ×2 (15:24→18:57)
--- NOTE | 2016-06-08 17:15 | IPNPDOC ---
Text Note Date of Service The patient was seen on 06/08/16. NOTE [id number] @ 1710 20 yo G1 @ 40+6 by LMP([id number]) and 8+2 wk US on [id number], with an KIAN- [id number]. Presented with CTXs and a small amount of spotting. Denies DFM, LOF and BRVB. GBS-negative. S: Resting in bed on left side. Uncomfortable with CTXs. Requesting epidural. Spouse at bedside O: VS- WNL, afebrile FHR- 150, moderate variability, + accels, no decels CTX- Q 3-4 min, lasting approx 120 sec, palpated as mod-strong, resting tone palpated as soft SVE- 5-6/100/-2, vtx/soft/mid A: 20 yo G1 @ 40+6 in active labor. CAT I FHR tracing, cervical change noted P: continue to monitor and assess, reassess in 2 hour or prn, anesthesia consult for epidural now, AROM at next exam if appropriate VS,Bille, I+O VS, Chavobone, I+O Laboratory Tests 06/08/16 14:18 Red Blood Count 4.01, Mean Corpuscular Volume 89.7, Mean Corpuscular Hemoglobin 30.6, Mean Corpuscular Hemoglobin Concent 34.1, Red Cell Distribution Width 13.3 Vital Signs Date Time Temp Pulse Resp B/P (MAP) Pulse Ox O2 Delivery O2 Flow Rate FiO2 06/08/16 16:13 103 99/52 (68) 06/08/16 16:09 18 06/08/16 13:23 98.3 DEVEN OCONNELL CNM June 08, 2016 17:15
[2016-06-08] MEDS ORDERED: FENTANYL 2MCG/ML ROPIVACAINE 0.2% IN 0.9% NACL 200ML IVBAG As Ordered ONE (17:19)
[2016-06-08] MEDS ORDERED: EPIDURAL/PCA KEYS XX PRN (18:45)
[2016-06-08] MEDS ORDERED: NALOXONE INJ 0.4 MG/1 ML VIAL (J2310) IV PRN (18:45)
[2016-06-08] MEDS ORDERED: ePHEDrine SULFATE 25 MG/5 ML(5MG/ML) SYRINGE IV PRN (18:45)
[2016-06-08] MEDS ORDERED: FENTANYL/ROPIVACAINE/NACL BAG 200 ML EPIDURAL SCH (18:45)
[2016-06-08] MEDS ORDERED: ONDANSETRON 4MG/2ML VIAL (J2405) IV PRN (18:45)
[2016-06-08] MEDS ORDERED: diphenhydrAMINE INJ 50MG/ML VIAL (J1200) IV PRN (18:45)
[2016-06-08] MEDS ORDERED: REFRIGERATOR IV KEYS XX PRN (18:45)
[2016-06-08] MEDS ORDERED: EPIDURAL COMMENT XX SCH (18:45)
[2016-06-08] MEDS ORDERED: OXYTOCIN 30 UNITS IN 0.9% NaCl 500ML IV BAG (J2590) As Ordered ONE (19:01)
--- NOTE | 2016-06-08 19:49 | IPNPDOC ---
Text Note Date of Service The patient was seen on 06/08/16. NOTE [id number] @ 1944 20 yo G1 @ 40+6 by LMP([id number]) and 8+2 wk US on [id number], with an KIAN- [id number]. Presented with CTXs and a small amount of spotting. Denies DFM, LOF and BRVB. GBS-negative. S: Resting in bed on right side. Comfortable with epidural infusing. Spouse at bedside O: VS- WNL, afebrile FHR- 150, min-moderate variability, + accels, variable deceleration after AROM, resolved with O2, fluid bolus and hands and knees CTX- Q 3-4 min, lasting approx 120 sec, palpated as mod-strong, resting tone palpated as soft SVE- 6-7/100/-2, vtx/soft/mid AROM- meconium, copious amount of fluid A: 20 yo G1 @ 40+6 in active labor. CAT II FHR tracing, cervical change noted P: continue to monitor and assess, reassess in 2 hour or prn, Report to Dany Ann, I+O Dany JIMENEZ, I+O Laboratory Tests 06/08/16 14:18 Red Blood Count 4.01, Mean Corpuscular Volume 89.7, Mean Corpuscular Hemoglobin 30.6, Mean Corpuscular Hemoglobin Concent 34.1, Red Cell Distribution Width 13.3 Vital Signs Date Time Temp Pulse Resp B/P (MAP) Pulse Ox O2 Delivery O2 Flow Rate FiO2 06/08/16 18:55 104 113/64 (80) 06/08/16 17:09 18 06/08/16 13:23 98.3 DEVEN OCONNELL CNM June 08, 2016 19:49
--- NOTE | 2016-06-08 20:53 | IPNPDOC ---
Text Note Date of Service The patient was seen on 06/08/16. NOTE Called to room for patient feeling urge to push. C/C/0 station, poor maternal effort at this time. Will allow passive descent x1 hour then begin pushing in earnest. Cat I-II tracing with mod cyndy, occasional decels, accels present. Overall reassuring. Nursing team aware of presence of meconium. Safe to proceed. Dr. Ashley Clarke MD [place] IVY VS,Dany, I+O VS, Dany, I+O Laboratory Tests 06/08/16 14:18 Red Blood Count 4.01, Mean Corpuscular Volume 89.7, Mean Corpuscular Hemoglobin 30.6, Mean Corpuscular Hemoglobin Concent 34.1, Red Cell Distribution Width 13.3 Vital Signs Date Time Temp Pulse Resp B/P (MAP) Pulse Ox O2 Delivery O2 Flow Rate FiO2 06/08/16 18:55 104 113/64 (80) 06/08/16 17:09 18 06/08/16 13:23 98.3 ASHLEY CLARKE MD June 08, 2016 20:52
[2016-06-08] MEDS ORDERED: OXYTOCIN DRIP 30 UNITS in APPROPRIATE DILUENT 1 EA IV SCH (22:58)
[2016-06-08] MEDS ORDERED: LIDOCAINE 1% MDV INJ 50 ML VIAL INFIL ONE (23:00)
[2016-06-08] MEDS ORDERED: DOCUSATE SODIUM 100 MG CAP PO PRN (23:00)
[2016-06-08] MEDS ORDERED: RHOGAM 300 MCG (1500 IU) INJ (J2790) IM SCH (23:00)
[2016-06-08] MEDS ORDERED: MEASLES,MUMPS,RUBELLA VACCINE INJ (MMR-II) (90707) SC SCH (23:00)
[2016-06-08] MEDS ORDERED: ACETAMINOPHEN 500 MG TAB PO PRN (23:00)
--- NOTE | 2016-06-08 23:12 | DNPDOC ---
[facility] Delivery Note Delivery Note DATE OF DELIVERY: June 08, 2016 at 2215 PREDELIVERY DIAGNOSIS: 40w6d gestation, IOL for non-reassuring surveillance POST DELIVERY DIAGNOSIS: Delivered. PROCEDURE: Spontaneous vaginal delivery ELECTROPLATER AUTOMATIC: Dr. Ashley Clarke MD ANESTHESIA: epidural and lidocaine ESTIMATED BLOOD LOSS: 200 mL. FINDINGS: male infant, Score 9/10 DELIVERY SUMMARY: Jennifer is a 20 yo G1 now P1001 who was admitted to L&D for IOL secondary to non-reassuring surveillance. She had an uncomplicated of a viable male infant at 2215 on 08 Jun 2016 at 40w6d. Head delivered OA, restituted ABAD. No nuchal cord. Left anterior shoulder delivered followed by posterior shoulder and corpus. Spontaneous cry noted. Cord clamped x2 and cut by FOB. Infant mouth/nares bulb suctioned. Baby placed on mother's abdomen. Apgars 9/10, weight 4290g (9#7oz) . Cord blood obtained due to maternal blood type of O pos. With gentle downward guidance and suprapubic pressure, placenta delivered spontaneously and intact with a centrally inserted cord. Fundal massage until both uterine fundus and lower uterine segment firm; fundus at U-2cm. Pitocin 30 units IV bolus administered. Inspection of perineum and vaginal wall revealed bilateral labial tears closed with 4.0 vicryl suture with good hemostasis. Mom and in stable condition. Dr. Ashley Clarke MD [place] MD June 08, 2016 23:12
[2016-06-09 00:32] VITALS: BP 108/55
[2016-06-09 05:52] VITALS: BP 119/73
--- NOTE | 2016-06-09 06:55 | IPNPDOC ---
Text Note Date of Service The patient was seen on 06/09/16. NOTE Jennifer is a 20yo [id number] doing well on PPD 1 s/p uncomplicated . Delivered 06/08 at 22:15. She is without issue. Lochia normal, spontaneously voiding and ambulating without difficulty. Tolerating regular diet. Denies f/c/n/v/SOB/CP/BRYANT/abdominal pain. Vitals wnl, afebrile Exam: General: WDWN, NAD, resting comfortably Cardiac: S1S2 present, no murmur Lungs: CTAB without wheeze/crackles Abdomen: soft, NTTP, fundus firm u-2cm Extremities: no tenderness of calves bilaterally Assessment: Jennifer is a 20yo [id number] doing well on PPD 1 s/p uncomplicated . Vitals wnl, benign exam. No e/o infection, hemodynamically stable. Plan: -routine post- care -tylenol/motrin prn pain -encourage and ambulation -will have 6wk PP follow-up visit Dr. Ashley Flaherty MD [place] Dany COHEN, I+O VSDany I+O Laboratory Tests 06/08/16 14:18 Red Blood Count 4.01, Mean Corpuscular Volume 89.7, Mean Corpuscular Hemoglobin 30.6, Mean Corpuscular Hemoglobin Concent 34.1, Red Cell Distribution Width 13.3 Vital Signs Date Time Temp Pulse Resp B/P (MAP) Pulse Ox O2 Delivery O2 Flow Rate FiO2 06/09/16 05:52 99.2 127 18 119/73 (88) I&O- Last 24 Hours up to 6 AM 06/09/16 06:00 Output Total 1300 ml Balance -1300 ml ASHLEY FLAHERTY MD June 09, 2016 06:55
[2016-06-09] MEDS: PRENATAL VITAMIN TAB PO SCH (09:00)
--- NOTE | 2016-06-09 09:05 | IPN ---
DATE: 06/09/2016 This patient and have requested circumcision of their male . After discussing the risks and benefits of circumcision, the medical and nonmedical indications, penile block and aftercare, expressed understanding of penile block and aftercare, signed and witnessed the consent form. We await the clearance by the live in caregiver.
[2016-06-09] MEDS: IBUPROFEN 800 MG TAB PO PRN (09:44)
[2016-06-09] MEDS ORDERED: LIDOCAINE 1% MDV INJ 50 ML VIAL As Ordered ONE (12:25)
[2016-06-09 18:00] VITALS: BP 108/59
[2016-06-10] MEDS: IBUPROFEN 800 MG TAB PO PRN (06:05)
[2016-06-10 06:29] VITALS: BP 111/57
--- NOTE | 2016-06-10 06:57 | IPNPDOC ---
Text Note Date of Service The patient was seen on 06/10/16. NOTE PPD2 prog note, but delivered at 2215 on 2MAY States feeling well, no complaints. No heavy VB. Pain controlled. Voiding, ambulatory. Bonding well and breast feeding. VSSAF CTAB RRR Ut at U-2, firm Ext no CCE a/p: Doing well, likely d/c tomorrow AM. Consider D/C this afternoon if is discharged by Peds. Sessions VSDany, I+O VSDany I+O Vital Signs Date Time Temp Pulse Resp B/P (MAP) Pulse Ox O2 Delivery O2 Flow Rate FiO2 06/10/16 06:29 98.7 76 16 111/57 (75) SESSIONS,SABRA Gee MD June 10, 2016 06:57
[2016-06-10] MEDS: PRENATAL VITAMIN TAB PO SCH (08:00)
[2016-06-10] MEDS ORDERED: IBUP-1114 PO (13:48)
== END 2016-06-10 14:45 | disposition home or self-care (01) | DRG 775 ==
LOC: M LDO 09:47 → M LDI 12:50 → M OBS 06-09 00:12
PROVIDERS: ADMIT Midwife; ATTEND Obstetrics & Gynecology
PROC: 10E0XZZ Delivery of Products of Conception, External Approach (ICD-10-PCS; principal; 2016-06-08)
PROC: 0HQ9XZZ Repair Perineum Skin, External Approach (ICD-10-PCS; 2016-06-08)
PROC: 10907ZC Drainage of Amniotic Fluid, Therapeutic from Products of Conception, Via Natural or Artificial Opening (ICD-10-PCS; 2016-06-08)
DX: O76 Abnormality in fetal heart rate and rhythm complicating labor and delivery (principal); O99.52 Diseases of the respiratory system complicating childbirth; Z3A.40 40 weeks gestation of pregnancy; J45.909 Unspecified asthma, uncomplicated; O77.0 Labor and delivery complicated by meconium in amniotic fluid; O48.0 Post-term pregnancy; O70.0 First degree perineal laceration during delivery; Z37.0 Single live birth

== ENCOUNTER → 2016-06-08 | Outpatient (CLI) | payer OTHER ==
[~2016-06-08] VITALS: Ht 160 cm; Wt 65.0 kg
[~2016-06-08] MED LIST changes: +IBUP-1114 PO; +RANI15TA PO
[2016-06-08 00:13] VITALS: BP 112/69
== END ==
LOC: M LDO 00:04
PROVIDERS: ATTEND Obstetrics & Gynecology
DX: O62.0 Primary inadequate contractions (principal); Z3A.40 40 weeks gestation of pregnancy

== ENCOUNTER → 2018-05-19 | Outpatient (REF) | payer OTHER ==
[~2018-05-19] MED LIST changes: +IBUP-1114 PO; +PARAIUD IU; +PROAAER10 INH; +RANI15TA PO
== END ==
LOC: M SFHCLERA 18:16
PROVIDERS: ATTEND Physician Assistant
DX: R50.9 Fever, unspecified (principal)

== ENCOUNTER → 2018-11-10 | Outpatient (REF) | payer OTHER | LOC: M SFHCLERA 11:18 | PROVIDERS: ATTEND Nurse Practitioner Family | DX: R68.89 Other general symptoms and signs (principal) ==

== ENCOUNTER → 2019-01-18 | Outpatient (REF) | payer OTHER ==
[~2019-01-18] MED LIST changes: +PARA1IUD IU; -PARAIUD IU
== END ==
LOC: M SFHCLERA 13:50
PROVIDERS: ATTEND Nurse Practitioner Family
DX: R68.89 Other general symptoms and signs (principal)